=== PATIENT | female | born 1990 | race Caucasian/White ===

== ENCOUNTER 2019-04-19 04:51 | Inpatient (IN) | payer OTHER ==
[~2019-04-19] VITALS: Ht 160 cm; Wt 69.1 kg
[~2019-04-19 04:51] MED LIST: AZIT250 PO
[2019-04-19 05:25] LABS: BASOPHILS ABSOLUTE AUTO 0.04 K/mm3 (0.00-0.23); BASOPHILS PERCENT AUTO 0 % (0-2); EOSINOPHILS ABSOLUTE AUTO 0.17 K/mm3 (0.00-0.68); EOSINOPHILS PERCENT AUTO 1 % (0-6); Hematocrit 36.8 % (33.0-51.0); Hemoglobin 12.1 g/dL (11.5-16.0); IMMATURE GRAN ABSOLUTE AUTO 0.14 K/mm3 (0.00-0.10); IMMATURE GRAN PERCENT AUTO 1 % (0-1); LYMPHOCYTES PERCENT AUTO 21 % (21-46); MONOCYTES ABSOLUTE AUTO 1.19 K/mm3 (0.16-1.47); MONOCYTES PERCENT AUTO 9 % (4-13); Mean Corpuscular HGB Conc 32.9 g/dL (31.5-36.5); Mean Corpuscular Volume 91 fL (80-100); Mean Platelet Volume 9.7 fL (9.1-12.4); NEUTROPHILS ABSOLUTE AUTO 8.93 K/mm3 (1.96-9.15); NEUTROPHILS PERCENT AUTO 67 % (41-73); Platelet Count 268 K/mm3 (150-400); RDW Coefficient Variation 12.5 % (11.7-14.2); RDW Standard Deviation 41.3 fL (35.1-46.3); Red Blood Cell Count 4.03 M/mm3 (3.80-5.20); White Blood Cell Count 13.27 K/mm3 (4.00-11.30)
--- NOTE | 2019-04-19 13:07 | NUR ---
ROUNDING PT. UP FOR SHOWER. FAMILY REPORTS THAT IS GOING WELL. INSTRUCTED THEM TO HAVE PT. CALL FOR ASSIST IF NEEDED.
--- NOTE | 2019-04-20 00:46 | NUR ---
MOTHER REQUEST MOTHER REQUEST FOR NB TO NURSE STATION TO REST. MOTHER STATES FEELING EXHAUSTED. NB TO NURSE STATION.
--- NOTE | 2019-04-20 01:54 | NUR ---
NB BACK TO MOTHERS ROOM TO FEED
[2019-04-20 05:55] LABS: Hematocrit 33.4 % (33.0-51.0); Hemoglobin 10.8 g/dL (11.5-16.0); Mean Corpuscular HGB 30.8 pg (26.0-34.0); Mean Corpuscular HGB Conc 32.3 g/dL (31.5-36.5); Mean Corpuscular Volume 95 fL (80-100); Mean Platelet Volume 9.4 fL (9.1-12.4); Platelet Count 213 K/mm3 (150-400); RDW Coefficient Variation 12.7 % (11.7-14.2); RDW Standard Deviation 43.7 fL (35.1-46.3); Red Blood Cell Count 3.51 M/mm3 (3.80-5.20); White Blood Cell Count 15.38 K/mm3 (4.00-11.30)
[2019-04-20] MEDS ORDERED: IBU800 MG PO (12:38)
--- NOTE | 2019-04-20 15:54 | NUR ---
BANDS MATCHED. PT DISCHARGED TO HOME
== END 2019-04-20 16:00 | disposition home or self-care (01) | DRG 807 ==
LOC: BC 04:51
PROVIDERS: ADMIT Advanced Practice Midwife
PROC: 10E0XZZ Delivery of Products of Conception, External Approach (ICD-10-PCS; principal; 2019-04-19)
PROC: 3E0R3BZ Introduction of Anesthetic Agent into Spinal Canal, Percutaneous Approach (ICD-10-PCS; 2019-04-19)
DX: O48.0 Post-term pregnancy (principal); Z37.0 Single live birth; Z3A.41 41 weeks gestation of pregnancy
CPT/HCPCS: 36415; 51702; 85025; 85027; 86900; 86901; 90686; J1885; J2001; J2590; J3010; J7030; J7120